=== PATIENT | male | born 1985 | race Caucasian/White ===

== ENCOUNTER 2017-01-25 06:53 | Emergency (ER) | payer OTHER ==
[~2017-01-25] VITALS: Ht 193 cm; Wt 68.0 kg
[~2017-01-25 06:53] MED LIST: ACCUNEB SO1.25 MG/1 INH; BACTRIM DS TAB1 EACH PO; GABAPENTIN 100100 MG; IBUPROFEN 800800 M1 PO; MEDROLDOSEPACK PO; NOHOMEMEDICATIONS; NORCO 5-325 TA1 EACH PO; NORFLEX100 MG PO; PENICILLIN VK500 M1 PO; PENICILLIN VK500 MG PO; PHENERGAN 25 MG25 M1; TRAMADOL 50 MG50 MG PO; XANAX 0.25 MG0.25 MG
[2017-01-25] MEDS ORDERED: CIPRODEX OTIC7.5 ML OTIC (07:38)
[2017-01-25] MEDS ORDERED: NAPROSYN500 MG PO (07:41)
[2017-01-25 07:56] VITALS: BP 103/69
== END 2017-01-25 07:57 | disposition home or self-care (01) ==
LOC: ER 06:53
DX: H93.8X1 Other specified disorders of right ear (principal); H60.8X1 Other otitis externa, right ear; G89.29 Other chronic pain; J45.909 Unspecified asthma, uncomplicated; Z88.5 Allergy status to narcotic agent; F17.210 Nicotine dependence, cigarettes, uncomplicated; F15.90 Other stimulant use, unspecified, uncomplicated

== ENCOUNTER 2017-01-29 18:08 | Emergency (ER) | payer OTHER ==
[~2017-01-29 18:08] MED LIST changes: +CIPRODEX OTIC7.5 ML OTIC; +NAPROSYN500 MG PO
[2017-01-29 18:13] VITALS: BP 116/77
== END 2017-01-29 19:12 | disposition home or self-care (01) ==
LOC: ER 18:08
DX: H92.01 Otalgia, right ear (principal); Z53.21 Procedure and treatment not carried out due to patient leaving prior to being seen by health care provider

== ENCOUNTER 2020-07-04 07:06 | Emergency (ER) | payer OTHER ==
[~2020-07-04] VITALS: Ht 195.6 cm; Wt 74.8 kg
[2020-07-04 07:08] VITALS: BP 103/72
[2020-07-04] MEDS ORDERED: PROAIR HFA8.5 GM INH (07:14)
[2020-07-04] MEDS ORDERED: ALPRAZOLAM 0.50.5 M1 PO (07:14)
[2020-07-04] MEDS ORDERED: PAXIL40 MG PO (07:14)
[2020-07-04] MEDS ORDERED: CLINDAMYCIN HC300 MG PO (08:40)
[2020-07-04] MEDS ORDERED: TRAMADOL 50 MG50 MG PO (08:40)
== END 2020-07-04 09:09 | disposition home or self-care (01) ==
LOC: ER 07:06
DX: L02.412 Cutaneous abscess of left axilla (principal); J45.909 Unspecified asthma, uncomplicated; M19.90 Unspecified osteoarthritis, unspecified site; F17.210 Nicotine dependence, cigarettes, uncomplicated; Z79.899 Other long term (current) drug therapy; Z88.5 Allergy status to narcotic agent

== ENCOUNTER 2020-07-24 06:10 | Emergency (ER) | payer OTHER ==
[~2020-07-24] VITALS: Ht 195.6 cm; Wt 77.1 kg
[~2020-07-24 06:10] MED LIST changes: +ALPRAZOLAM 0.50.5 M1 PO; +CLINDAMYCIN HC300 MG PO; +PAXIL40 MG PO; +PROAIR HFA8.5 GM INH
[2020-07-24 07:04] VITALS: BP 115/77
== END 2020-07-24 07:06 | disposition home or self-care (01) ==
LOC: ER 06:10
DX: U07.1 COVID-19 (principal); B34.9 Viral infection, unspecified; J45.909 Unspecified asthma, uncomplicated; G89.29 Other chronic pain; M54.9 Dorsalgia, unspecified; F17.210 Nicotine dependence, cigarettes, uncomplicated; Z79.899 Other long term (current) drug therapy; Z88.5 Allergy status to narcotic agent